=== PATIENT | female | born 1975 | race Caucasian/White ===

== ENCOUNTER → 2017-02-01 | Outpatient (CLI) | payer BC ==
[~2017-02-01] MED LIST: CITALOPRAM HBR40 MG PO; LEVOTHYROXINE50 MCG PO; NAPROSYN500 MG PO; NORCO 5-325 TA1 EACH PO; PRILOSEC OTC20 MG PO; ZANTAC300 MG PO
[2017-02-01 11:59] LABS: HEMOGLOBIN 13.3 gm/dl (12.3-15.3); RED BLOOD COUNT 5.05 M/UL (4.00-5.10); WHITE BLOOD COUNT 6.5 K/UL (4.5-11.0)
== END ==
LOC: OPSV2 01-31 08:00
PROVIDERS: Obstetrics & Gynecology
DX: Z01.812 Encounter for preprocedural laboratory examination (principal); R32 Unspecified urinary incontinence
CPT/HCPCS: 36415; 81001; 85025